=== PATIENT | female | born 1965 | race African-American/Black ===

== ENCOUNTER 2021-01-08 15:36 | Emergency (ER) | payer SELFPAY ==
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
[2021-01-08 20:45] VITALS: BP 176/88
== END 2021-01-08 20:45 | disposition home or self-care (01) ==
LOC: ED 15:36
DX: S16.1XXA Strain of muscle, fascia and tendon at neck level, initial encounter (principal); Z79.899 Other long term (current) drug therapy; V49.59XA Passenger injured in collision with other motor vehicles in traffic accident, initial encounter; Y92.410 Unspecified street and highway as the place of occurrence of the external cause; Y93.89 Activity, other specified; Y99.8 Other external cause status
CPT/HCPCS: 99282